=== PATIENT | female | born 2005 | race Caucasian/White ===

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

== ENCOUNTER 2023-09-22 13:00 | Emergency (ER) | payer BC, SELFPAY ==
[2023-09-22] VITALS (11 sets, daily range): BP systolic 114–137; BP diastolic 69–72; PULSE 85–107; RESP 18; TEMP 36.2; O2SAT 96–100; BMI 21.0
--- NOTE | 2023-09-22 14:05 | ED.GENADULT ---
HPI - General Adult General Chief complaint: Headache/Migraine Stated complaint: Fell off horse Friday, hit head/back Time Seen by Provider: 09/22/23 13:30 History of Present Illness HPI narrative: [facility] comes to ed with concerns of a headache, poor concentration?especially during class today, left and right hip and lower back pain . had fallen off a horse on Friday. fell 5 feet onto shallow sand. did have a helmet on. landed on her right hip. brief loss of consciousness after she tried to get up after the fall. does have a hx of syncope in the past. able to drive to ER 18-year-old young woman presenting to the emergency department with concern of possible concussion. Approximately 36 hours ago fell off a horse about 5 ft in to shallow stand. She was helmeted. Did not strike her head. Landed on her right side/hip. Increasingly sore a generally along the right side since. Is able to ambulate though without significant difficulty. When she went to set up briefly lost consciousness. Has had increased headache though does not feel that she needs treatment for it now. She has treated with ibuprofen. Headache is described as bifrontal and posterior. No visual changes. Also with some low back pain. Nonradicular. Today in class though with this concern of headache which she thinks is what is leading to poor concentration. Is wondering about potential concussion; just thought she should be evaluated. She does note a history of suspected pots and prone to syncope. Does have a migraine history. Related Data Previous Rx's Medication Instructions Recorded lorazepam 0.5 mg tablet 0.5 mg PO BID PRN anxiety #30 tabs 09/18/22 fluoxetine 20 mg tablet 60 mg (3 x 20 mg) PO QDAY #270 tabs 07/08/23 dextroamphetamine-amphetamine ER 10 mg PO QAM #90 caps 09/10/23 10 mg 24hr capsule,extend release (Adderall XR) Allergies Allergy/AdvReac Type Severity Reaction Status Date / Time No Known Allergies Allergy Verified 09/22/23 13:07 Review of Systems Status of ROS: Reports: 6 or more systems reviewed and unremarkable except as noted in History and below [facility] Medical History Low vitamin B12 level ?E53.8 - Deficiency of other specified B group vitamins (ICD-10) 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 Appears of good energy. NAD. Head is atraumatic. Skin is warm and dry. I do not see areas of erythema or bruising at this time. Cranial nerves 2-12 intact. Pupils are brisk and equal. Neck is supple. She is sore along the paracervical musculature more so on the right side. Does not have midline neck tenderness. Soreness generally along the right side back musculature down to the lumbar spine and above the right SI joint. No significant buttock area pain or evidence of hematoma. She is moving all extremities without difficulty with good strength. Articulating fluidly clearly and appears to have good recall. Const: Vital Signs, click to edit/add: Vital Signs - 24 hr 09/22/23 13:30 09/22/23 13:31 09/22/23 13:45 Pulse Rate 95 90 100 Blood Pressure 117/70 Pulse Oximetry 98 98 98 09/22/23 14:00 09/22/23 14:01 09/22/23 14:15 Pulse Rate 94 107 H 85 Blood Pressure 114/69 Pulse Oximetry 99 98 100 09/22/23 14:30 09/22/23 14:31 09/22/23 14:45 Pulse Rate 92 95 85 Blood Pressure 125/72 Pulse Oximetry 96 97 97 Documenting provider has reviewed patient's vital signs: yes Course Vital Signs Vital signs: Initial Vital Signs Temperature 97.1 F L 09/22/23 13:08 Temperature Source Temporal Artery Scan 09/22/23 13:08 Pulse Rate 92 09/22/23 13:08 Respiratory Rate 18 09/22/23 13:08 Blood Pressure 137/71 09/22/23 13:08 Blood Pressure Mean 93 11/06/23 13:08 Blood Pressure Position Supine 09/22/23 13:08 Pulse Oximetry 97 09/22/23 13:08 Oxygen Delivery Method Room Air 09/22/23 13:08 Vital Signs Temperature 97.1 F L 09/22/23 13:08 Pulse Rate 92 09/22/23 13:08 Respiratory Rate 18 09/22/23 13:08 Blood Pressure 137/71 09/22/23 13:08 Pulse Oximetry 97 09/22/23 13:08 Oxygen Delivery Method Room Air 09/22/23 13:08 Temperature 97.1 F L 09/22/23 13:08 Pulse Rate 85 09/22/23 14:45 Respiratory Rate 18 09/22/23 13:08 Blood Pressure 125/72 09/22/23 14:31 Pulse Oximetry 97 09/22/23 14:45 Oxygen Delivery Method Room Air 09/22/23 13:08 Medical Decision Making MDM Narrative Medical decision making narrative: Certainly is possible there is a concussion here. I do not think any imaging is needed at this time. I think is at expected level of discomfort. Headache is improved and would appear to be consistent with tension-type headache given musculoskeletal findings. She herself is suggesting that her discomfort she was experiencing was contributing to poor concentration. I think it might be too early to diagnose a concussion though would have concerns about that. Would monitor over this next week. Otherwise would focus on stretching, warm/cold packs. She does not feel she needs any treatment for pain at this time. Available imaging at this time would certainly be low yield as well for concussion. See patient discharge plan Discharge Plan Discharge Clinical Impression: Muscle strain, Muscle tension headache Patient Disposition: Home, Self-Care Condition: Stable Additional Instructions: In addition to pull down stretches of the neck as demonstrated, see handout for further exercises to stretch out your upper back. Important to get quality and regular sleep and stay well hydrated. Can take up to 800 mg of ibuprofen or up to 1000 mg of acetaminophen per dose. These can also be combined. You might experience other symptoms like headache and nausea on exertion which would also be an indication to back off that level of activity and reassess in 1 week.? Other symptoms might be a smoldering headache or nausea for an extended period of time, mood lability, sleep disturbances, difficulty with concentration, persistent light sensitivity.? If these symptoms continue beyond a week, I would be re-evaluated for consideration of participation with physical therapy specializing in concussive symptoms or follow-up with a clinic specializing in concussion. Prescriptions: No Action fluoxetine 20 mg tablet 60 mg PO QDAY Qty: 270 3RF lorazepam 0.5 mg tablet 0.5 mg PO BID PRN (Reason: anxiety) Qty: 30 0RF dextroamphetamine-amphetamine [Adderall XR] 10 mg capsule,extended release 24hr 10 mg PO QAM Qty: 90 0RF Follow Up/Referrals: Rosalva Nobles PA-C [Primary Care Provider] - Stand Alone Forms: [facility] Info Instructions
== END 2023-09-22 14:57 | disposition home or self-care (01) ==
PROVIDERS: Emergency Provider Family Medicine; PCP Physician Assistant Medical
DX: G44.209 Tension-type headache, unspecified, not intractable (principal); T14.8XXA Other injury of unspecified body region, initial encounter
CPT/HCPCS: 99283; 99284

== ENCOUNTER 2024-06-07 11:51 | Outpatient (CLI) | payer BC, SELFPAY | END 2024-06-07 11:52 | disposition home or self-care (01) | PROVIDERS: PCP Physician Assistant Medical; Visit Provider Physician Assistant Medical | DX: Z00.00 Encounter for general adult medical examination without abnormal findings (principal); E53.8 Deficiency of other specified B group vitamins; R63.4 Abnormal weight loss; F41.9 Anxiety disorder, unspecified; F90.9 Attention-deficit hyperactivity disorder, unspecified type | CPT/HCPCS: 80306; 82306; 82607; 84443 ==